=== PATIENT | female | born 1940 | race Caucasian/White ===

== ENCOUNTER 2016-11-23 12:52 | Outpatient (CLI) ==
[2016-02-09 18:33] VITALS: BMI 25.8
--- NOTE | 2016-11-23 13:31 | DI ---
EXAM: Three x-rays of the lumbar spine. Comparison: CT scan performed 03/02/2008, CT imaging performed on 02/10/2016 of the abdomen and pel vis. Reason for study: Lumbar disc degeneration. FINDINGS: Multilevel degenerative disc disease with loss of the intervertebral body disc space heigh t, osteophyte formation, and facet arthropathy. There is a similar appearing grade 1 retrolithesis of L1 on L2. There is maintenance of the lumbar lordotic curve. Vascular calcifications are seen w ithin the abdomen. No new vertebral body fracture or listhesis. Impression: 1. Multilevel degenerative disc disease is similar in appearance when compared to prior imaging. 2. No acute fracture or listhesis.
== END 2016-11-23 12:53 | disposition home or self-care (01) ==
LOC: RAD 12:52
PROVIDERS: ATTEND Pain Medicine Interventional Pain Medicine
DX: M47.817 Spondylosis without myelopathy or radiculopathy, lumbosacral region (principal); M51.36 Other intervertebral disc degeneration, lumbar region

== ENCOUNTER 2017-06-15 15:12 | Outpatient (CLI) ==
[2016-02-09 18:33] VITALS: BMI 25.8
--- NOTE | 2017-06-15 16:19 | DI ---
EXAM: Two views of the chest. History: Cough. Comparison: Chest radiograph 11/08/2014 Findings: Heart size is normal. Sternotomy wires. Atherosclerotic vascular calcifications. No foc al consolidation. No appreciable pleural fluid and no pneumothorax. Small to moderate hiatal hernia . There are a few small left upper lobe lung nodules are not clearly seen on the prior study. No ac heidi osseous abnormalities. Impression: 1. No focal pneumonia. 2. Small left upper lobe lung nodules not clearly seen on the prior study. Recommend further evalua tion with chest CT. 3. Hiatal hernia.
== END 2017-06-15 15:13 | disposition home or self-care (01) ==
LOC: RAD 15:12
PROVIDERS: ATTEND Family Medicine
DX: R05 Cough (principal)

== ENCOUNTER 2017-06-17 11:13 | Outpatient (CLI) ==
[2016-02-09 18:33] VITALS: BMI 25.8
--- NOTE | 2017-06-17 11:59 | CT ---
EXAM: CT chest without contrast HISTORY: Lung nodule COMPARISON: Radiograph chest 06/15/[address] chest 06/12/2012 TECHNIQUE: CT chest performed without intravenous contrast. Coronal and sagittal reformatted images obtained FINDINGS: Thyroid and thoracic inlet appear normal. Heart normal in size. No pericardial effusion. Coronary calcifications. Aorta normal in caliber. Atherosclerosis. Moderate hiatal hernia. Evalu ation for lymphadenopathy limited without contrast. No lymphadenopathy identified. Bilateral breast implants. Visualized portion upper abdomen demonstrates no acute abnormality. A right renal cyst is incompletely imaged. No acute abnormalities of the bones. Degenerative change in the spine. Media n sternotomy wires. Central airway patent. Bilateral lower airway thickening. No airspace consolid ation. No pleural effusion. No pneumothorax. Minimal scarring in the bilateral upper lobes. A 2 mm nodule left lung apex on image 6 is unchanged from 2012, consistent with benign etiology. No new or suspicious pulmonary nodules identified. IMPRESSION: 1. No new or suspicious pulmonary nodules. 2. 2 mm nodule left lung apex is unchanged from 2012, consistent with benign etiology. 3. Mild lower airway thickening, suggesting infectious/inflammatory bronchiolitis. 4. Mild scattered areas of scarring. 5. Moderate hiatal hernia. 6. Coronary calcifications. Atherosclerosis.
== END 2017-06-17 11:14 | disposition home or self-care (01) ==
LOC: RAD 11:13
PROVIDERS: ATTEND Family Medicine
DX: R93.8 Abnormal findings on diagnostic imaging of other specified body structures (principal)

== ENCOUNTER 2017-07-27 13:56 | Outpatient (CLI) ==
[2016-02-09 18:33] VITALS: BMI 25.8
--- NOTE | 2017-07-27 14:53 | DEXA ---
EXAM: Bone densitometry. History: Osteoporosis. Findings: Evaluation of the lumbar spine reveals a total bone mineral density of 1.013 grams per centimeter squ ared with T-score of negative 1.4. Evaluation of the left hip reveals a total bone mineral density of 0.799 grams per centimeter squared with T-score of negative 1.7. Evaluation of the right hip reveals a total bone mineral density of 0.800 grams per centimeter square d with T-score of negative 1.7 Impression: Normal bone mineral density of the lumbar spine and bilateral hips
== END 2017-07-27 13:57 | disposition home or self-care (01) ==
LOC: RAD 13:56
PROVIDERS: ATTEND Nurse Practitioner
DX: M81.0 Age-related osteoporosis without current pathological fracture (principal)

== ENCOUNTER 2018-04-14 12:17 | Outpatient (CLI) ==
[2016-02-09 18:33] VITALS: BMI 25.8
--- NOTE | 2018-04-14 13:15 | DI ---
EXAM: Three views of the right ankle. History: Right ankle pain and swelling. Findings: No acute fracture or dislocation. Diffuse subcutaneous edema. Surgical clips are seen al bob the medial side of the ankle and lower leg. Joint spaces are relatively preserved. Impression: 1. No acute osseous abnormality. 2. Diffuse subcutaneous edema
== END 2018-04-14 12:18 | disposition home or self-care (01) ==
LOC: RAD 12:17
PROVIDERS: ATTEND Family Medicine
DX: M25.571 Pain in right ankle and joints of right foot (principal)

== ENCOUNTER 2018-05-01 15:40 | Outpatient (CLI) ==
[2016-02-09 18:33] VITALS: BMI 25.8
--- NOTE | 2018-05-01 23:09 | DI ---
EXAM: PA and lateral views of the chest HISTORY: Chest pain COMPARISON: Chest x-ray 06/15/[address] chest 06/17/2017 FINDINGS: The cardiomediastinal silhouette is unchanged with stable sternotomy wires. There is no p neumothorax or pleural effusion. The lungs are mildly hyperinflated. There is no consolidation, nod ule or mass. The osseous structures demonstrate degenerative disease of the thoracic spine. IMPRESSION: No acute consolidation or cardiopulmonary process with mild hyperinflation.
--- NOTE | 2018-05-02 08:22 | DI ---
EXAM: Two views of the right ribs HISTORY: Right rib pain. COMPARISON: CT chest and 03/10/2017 FINDINGS: There is mild irregularity of the right fourth, fifth and sixth and seventh ribs. There is no lytic or blastic lesion. The adjacent soft tissues are normal. IMPRESSION: Minimally displaced right fourth through seventh lateral rib fractures.
== END 2018-05-01 15:41 | disposition home or self-care (01) ==
LOC: RAD 15:40
PROVIDERS: ATTEND Family Medicine
DX: R07.9 Chest pain, unspecified (principal); S29.9XXA Unspecified injury of thorax, initial encounter; W19.XXXA Unspecified fall, initial encounter

== ENCOUNTER 2018-10-10 10:11 | Outpatient (CLI) ==
[2016-02-09 18:33] VITALS: BMI 25.8
--- NOTE | 2018-10-10 11:44 | US ---
EXAM: Thyroid ultrasound History: Abnormal thyroid function tests. Technique: Multiple sonographic images through the thyroid gland were obtained. Color duplex Dopple r was used to interrogate vascular flow. Findings: The right lobe of the thyroid measures 4.7 cm x 1.3 cm x 1.8 cm demonstrates multiple benign cystic n odule with the largest measuring 0.5 cm. The thyroid isthmus measures 0.3 cm in thickness. The left lobe the thyroid measures 3.7 cm x 1.2 cm x 1.1 cm and is without discrete nodule identified . No extrathyroidal masses are identified. The thyroid gland is not hypervascular. Impression: Multiple benign cystic nodules within the right thyroid lobe. Examination is otherwise unremarkable
== END 2018-10-10 10:12 | disposition home or self-care (01) ==
LOC: RAD 10:11
PROVIDERS: ATTEND Family Medicine
DX: R79.9 Abnormal finding of blood chemistry, unspecified (principal)

== ENCOUNTER 2018-12-15 09:02 | Outpatient (CLI) ==
[2016-02-09 18:33] VITALS: BMI 25.8
== END 2018-12-15 09:03 | disposition home or self-care (01) ==
LOC: CAR 09:02
PROVIDERS: ATTEND Family Medicine
DX: R06.2 Wheezing (principal)
CPT/HCPCS: 82803